=== PATIENT | male | born 1950 | race American Indian/Alaskan Native ===

== ENCOUNTER 2017-06-11 09:50 | Inpatient (IN) | payer BC, MEDICARE ==
[2017-06-11 09:50] VITALS: BMI 39.2
[2017-06-11] MEDS ORDERED: Sodium Chloride 0.9% 1,000 ML IV ONE (10:19)
[2017-06-11] MEDS ORDERED: cefTRIAXone IV 1 gm in Dextros 50 ML IV STA (10:32)
--- NOTE | 2017-06-11 10:32 | C.PDOC ---
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 Pt also reports pain to right side of chest when coughing. States Tmax of 103 this morning, notes taking Tylenol [facility]ENTER CONSULTANT. Otherwise, denies any shortness of breath, palpitations, lightheadedness, sore throat, or any other associated symptoms at this time. Time Seen by Provider: 06/11/17 10:03 Chief Complaint (Nursing): Fever History Per: Patient History/Exam Limitations: no limitations Onset/Duration Of Symptoms: Days (3) Current Symptoms Are (Timing): Still Present Location Of Pain: None Sick Contacts (Context): None Associated Symptoms: Fever, Cough, Sputum, Nasal Congestion. denies: Sore Throat, Neck Pain, Sinus Drainage, Nausea, Vomiting, Diarrhea Ear Symptoms: Bilateral: None Recent travel outside of the [place]: No Additional History Per: Patient Past Medical History Reviewed: Historical Data, Nursing Documentation, Vital Signs Vital Signs: Last Vital Signs Temp 100.3 F H 06/11/17 16:12 Pulse 100 H 06/11/17 16:04 Resp 20 06/11/17 16:04 BP 135/82 06/11/17 16:04 Pulse Ox 97 06/11/17 16:04 - Medical History PMH: Diabetes, Deep Vein Thrombosis - [facility] Procedures CONTRAST ARTERIOGRAM-LEG (12/24/13) PHYSICAL THERAPY NEC (01/06/14) VASC SHUNT & BYPASS NEC (12/24/13) Family History: States: Other Other Family History: brother colon cancer - Social History Hx Tobacco Use: No (quit 1995) Hx Alcohol Use: Yes Hx Substance Use: No - Immunization History Hx Tetanus Toxoid Vaccination: No Hx Influenza Vaccination: No Hx Pneumococcal Vaccination: No Review Of Systems Except As Marked, All Systems Reviewed And Found Negative. Constitutional: Positive for: Fever ENT: Positive for: Nose Congestion. Negative for: Ear Pain, Nose Discharge, Throat Pain, Throat Swelling Cardiovascular: Negative for: Palpitations, Light Headedness Respiratory: Positive for: Cough, Sputum. Negative for: Shortness of Breath, Wheezing Gastrointestinal: Negative for: Nausea, Vomiting, Abdominal Pain Musculoskeletal: Negative for: Leg Pain Skin: Negative for: Rash Neurological: Negative for: Headache, Dizziness Physical Exam - Physical Exam Appears: Non-toxic, No Acute Distress Skin: Normal Color, Warm, Dry Head: Atraumatic, Normacephalic Eye(s): bilateral: Normal Inspection, EOMI Ear(s): Bilateral: Normal Nose: Normal, No Discharge Oral Mucosa: Moist Tongue: Normal Appearing Lips: Normal Appearing Throat: Normal, No Erythema, No Exudate Neck: Normal ROM, Supple Chest: Symmetrical Cardiovascular: Rhythm Regular, No Murmur Respiratory: Normal Breath Sounds, No Accessory Muscle Use, No Rales, No Rhonchi , No Wheezing Gastrointestinal/Abdominal: Soft, No Tenderness Back: No CVA Tenderness Extremity: Normal ROM Neurological/Psych: Oriented x3, Normal Speech ED Course And Treatment - Laboratory Results Result Diagrams: 06/11/17 11:10 06/11/17 11:10 ECG: Interpreted By Me, Viewed By Me ECG Rhythm: Sinus Tachycardia Rate From EC (BPM) O2 Sat by Pulse Oximetry: 98 (on RA) Pulse Ox Interpretation: Normal Progress Note: Blood work, EKG, CXR ordered and reviewed. Patient was given IV fluids, Aspirin, Azithromycin, and Rocephin. On reassessment, patient is resting comfortably, no acute distress. Case discussed with Dr Stephens who requests admission under hospitalist. Case discussed with Dr Fields, agreed upon admission. Disposition - Disposition Disposition: HOSPITALIZED Disposition Time: 13:00 Condition: STABLE - Clinical Impression Clinical Impression: Pneumonia - PA / AUDIO VISUAL AIDS DIRECTOR / Resident Statement MD/DO has reviewed & agrees with the documentation as recorded. - Scribe Statement The provider has reviewed the documentation as recorded by the Scriborquidea Stephens All medical record entries made by the Scriborquidea were at my direction and personally dictated by me. I have reviewed the chart and agree that the record accurately reflects my personal performance of the history, physical exam, medical decision making, and the department course for this patient. I have also personally directed, reviewed, and agree with the discharge instructions and disposition.
[2017-06-11] MEDS ORDERED: Azithromycin 500 MG in Sodium Chloride 0.9% 250 ML IVPB ONE (11:00)
[2017-06-11 11:26] LABS: BASO % 0.3 % (0.0-2.0); HEMOGLOBIN 13.9 g/dL (12.0-18.0); LYMPH # 0.8 K/uL (1.0-4.3); LYMPH % 5.3 % (20.0-40.0); MEAN CELL VOLUME 87.6 fL (80.0-94.0); MEAN CORPUSCULAR HGB CONC 33.1 g/dL (33.0-37.0); MEAN PLATELET VOLUME 9.7 fL (7.2-11.7); MONO % 6.8 % (0.0-10.0); NEUT # 12.9 K/uL (1.8-7.0); NEUT % 87.6 % (50.0-75.0); PLATELET COUNT 158 K/uL (130-400); RBC 4.79 Mil/uL (4.40-5.90); RED CELL DISTRIBUTION WIDTH 14.4 % (11.5-14.5); WHITE BLOOD COUNT 14.7 K/uL (4.8-10.8)
[2017-06-11] MEDS ORDERED: cefTRIAXone IV 1 gm in Dextros 50 ML IVPB ONE (11:27)
[2017-06-11] MEDS ORDERED: Sodium Chloride 0.9% 1,000 ML ONE (11:27)
--- NOTE | 2017-06-11 11:27 | RAD ---
HISTORY: Pneumonia COMPARISON: Chest x-ray performed 01/02/14 TECHNIQUE: Chest PA and lateral FINDINGS: LUNGS: Patchy right upper lobe consolidation suspicious for pneumonia. Right hilar prominence. Please note that chest x-ray has limited sensitivity for the detection of pulmonary masses. PLEURA: No significant pleural effusion identified. No definite pneumothorax . CARDIOVASCULAR: The cardiomediastinal silhouette appears within normal limits of size. OSSEOUS STRUCTURES: No acute osseous abnormality identified. VISUALIZED UPPER ABDOMEN: Unremarkable. OTHER FINDINGS: None. IMPRESSION: Patchy right upper lobe consolidation suspicious for pneumonia. Recommend follow-up to document complete resolution. Right hilar prominence.
[2017-06-11 11:31] LABS: INR 3.6
[2017-06-11 11:40] LABS: ALBUMIN 4.1 g/dL (3.5-5.0)
[2017-06-11 11:43] LABS: ALT/SGPT 41 U/L (21-72); AST/SGOT 45 U/L (17-59); BLOOD UREA NITROGEN 13 mg/dL (9-20); GFR AFRICAN-AMERICAN > 60; GFR NON-AFRICAN AMERICAN > 60
[2017-06-11 11:44] LABS: CALCIUM 9.1 mg/dl (8.6-10.4)
[2017-06-11 11:48] LABS: CK-MB 2.11 ng/mL (0.0-3.38); PROTHROMBIN TIME 43.2 SECONDS (9.7-12.2)
[2017-06-11 12:06] LABS: BANDS 9 % (0-2); LYMPHOCYTE 5 % (20-40); MONOCYTE 6 % (0-10); NEUTROPHIL 80 % (50-75); TOTAL CELLS COUNTED 100
[2017-06-11 12:07] LABS: LARGE PLATELETS PRESENT; PLATELET ESTIMATE NORMAL (NORMAL)
[2017-06-11] MEDS ORDERED: Azithromycin 500mg/250ML NS 500 MG/250 ML BAG IVPB ONE (12:19)
[2017-06-11 14:38] VITALS: RESP 20
--- NOTE | 2017-06-11 14:53 | CP.PCM.HP ---
Addendum entered and electronically signed by Brent Zendejas DO 06/11/17 20:54: Update to allergy listed in H&P: Pt states he "breaks out in a rash when he takes generic warfarin," he denies such response when taking coumadin. Coumadin being held this evening (06/11) due to elevated INR on admission. 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 Patients reports that symptoms began Sunday night while at home. Patient reports a cough that is productive with mucus and blood tinged. Patient reports he took his own temperature at home and had a maximum temperature of 103F fever. Patient reports taking Tylenol for fever control which worked but the fevers have persisted since. Patient denies any SOB at rest or exertion. Patient admits to fevers, sweating, weakness, dizziness, cough, frequency with urination, and a decrease appetite. He denies chest pain, palpitations, abdominal pain, nausea, vomiting, or diarrhea. Patient denies recent admission to healthcare facility. He denies recent travel or sick contacts. 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 Allergies: Warfarin (pt states he cannot take generics because...) Social Hx: 30 year pack tobacco history quit in 1995, denies alcohol use, smokes marijuana occasionally. 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 Lives at home with . Family Hx: mother had colon cancer and thyroid issues, . Father: unknown. Brother: possible ALS. Present on Admission - Present on Admission Any Indicators Present on Admission: Yes History of DVT/PE: Yes History of Uncontrolled Diabetes: No Review of Systems - Constitutional Constitutional: Fever, Lethargy, Malaise, Weakness. absent: Chills, Headache, Weight Loss - EENT Eyes: absent: Change in Vision Ears: absent: Decreased Hearing Nose/Mouth/Throat: absent: Nasal Congestion, Sore Throat - Cardiovascular Cardiovascular: Diaphoresis. absent: Chest Pain, Chest Pain at Rest, Dyspnea, Dyspnea on Exertion, Leg Edema, Palpitations - Respiratory Respiratory: Cough, Chest Congestion. absent: Dyspnea, Hemoptysis, Wheezing - Gastrointestinal Gastrointestinal: absent: Abdominal Pain, Diarrhea, Nausea, Vomiting - Genitourinary Genitourinary: Urinary Frequency. absent: Difficulty Urinating, Dysuria - Musculoskeletal Musculoskeletal: absent: Arthralgias, Back Pain, Numbness, Tingling - Integumentary Additional comments: chronic leg rashes - Neurological Neurological: absent: Numbness, Tingling, Weakness - Psychiatric Psychiatric: absent: Anxiety, Depression - Endocrine Endocrine: Polyuria. absent: Palpitations Past Patient History - Infectious Disease Hx of Infectious Diseases: None - Past Social History Smoking Status: Former Smoker - CARDIAC Hx Cardiac Disorders: Yes Other/Comment: IVC filter - ENDOCRINE/METABOLIC Hx Endocrine Disorders: Yes Hx Diabetes Mellitus Type 2: Yes - PSYCHIATRIC Hx Substance Use: No - SURGICAL HISTORY Hx Surgeries: Yes Hx Vascular Surgery: Yes (bilateral lower extremity bypass) Meds Allergies/Adverse Reactions: Allergies Allergy/AdvReac Type Severity Reaction Status Date / Time warfarin Allergy Verified 06/11/17 10:00 Physical Exam - Constitutional Appears: Non-toxic, No Acute Distress - Head Exam Head Exam: ATRAUMATIC, NORMOCEPHALIC - Eye Exam Eye Exam: EOMI, Normal appearance. absent: Scleral icterus Pupil Exam: PERRL - ENT Exam ENT Exam: Mucous Membranes Moist - Neck Exam Neck exam: Positive for: Normal Inspection. Negative for: Lymphadenopathy Additional comments: No JVD - Respiratory Exam Respiratory Exam: Decreased Breath Sounds (right), NORMAL BREATHING PATTERN. absent: Accessory Muscle Use, Clear to Auscultation Bilateral, Rales, Rhonchi, Wheezes, Respiratory Distress, Stridor - Cardiovascular Exam Cardiovascular Exam: Tachycardia, +S1, +S2 - GI/Abdominal Exam GI & Abdominal Exam: Normal Bowel Sounds, Soft. absent: Firm, Guarding, Tenderness - Extremities Exam Additional comments: Chronic venous stasis changes On RLE, bandage over bypass scarring - Back Exam Back exam: absent: CVA tenderness (L), CVA tenderness (R), rash noted, tenderness - Neurological Exam Neurological exam: Alert, Oriented x3 - Psychiatric Exam Psychiatric exam: Normal Affect, Normal Mood - Skin Skin Exam: Normal Color, Warm Results - Vital Signs Recent Vital Signs: Last Vital Signs Temp 99.9 F H 06/11/17 13:50 Pulse 100 H 06/11/17 13:50 Resp 20 06/11/17 13:50 BP 145/76 06/11/17 13:50 Pulse Ox 95 06/11/17 13:50 - Labs Result Diagrams: 06/11/17 11:10 06/11/17 11:10 Assessment & Plan - Assessment and Plan (Free Text) Plan: Community Acquired Pneumonia Admit to Telemetry, in respiratory isolation due to hemoptysis O2 desaturated to 90% on admission CXR (06/11/2017): RUL consolidation suggestive of pneumonia. Right hilar prominence (see full report) Start Azithromycin 500mg IV Daily Start Rochephin 1 gm IV Daily Florastor 250mg PO BID Tylenol 650mg PO Q6h PRN O2 2L PRN via NC f/u Strep, Legionella, Mycoplasma f/u AM Labs, TSH/Free T4, Lipid panel f/u blood and sputum culture CURB65 score: 1 pt (2.7% 30-day mortality) Sepsis Criteria: WBC >12k, HR >90 Source: Pneumonia Lactate 1.4 on admission ABG, no code sepsis called Hemoptysis Place on respiratory isolation f/u AFB sputum x 3 f/u Quantiferon gold Elevated troponin Pt denies chest pain, but has risk factors of Hyperlipidemia and T2DM, also long -term smoker EKG: No acute St changes, Rate @ 98 bpm; f/u 2 additional Q6H Olive panel equivocal x 1 (0.1210), f/u 2 additional Q6H ASA 81mg PO Daily Crestor 10mg PO HS - hold BB/KERVIN at this time due equivocal positive troponin, will start if uptrending Cardio consult: Dr. Shetty - f/u recommendations Type 2 diabetes mellitus Diagnosed 10 years ago Hold home meds glipizide, onglyza, pioglitazone, and Medium insulin sliding scale Lantus 10 units HS f/u A1C, lipid panel Electrolyte abnormality Hypokalemia 3.4 on admission - Kdur 40mg PO x 2 doses f/u AM K and magnesium Hx of Multiple DVTs IVC filter placed per pt in 1996 Home med Coumadin 8mg Daily HELD due to coagulopathy - INR 3.5 on admission labs -f/u INR/PTT in am Prophylaxis Hold SCDs due to PVD Hold chemical anticoagulation due to elevated INR - f/u Pt/INR in AM No GI ppx indicated at this time Discussed with Dr. Donnie Zendejas PGY-1 <Dwaine Fields - Last Filed: 06/12/17 18:15> Results - Vital Signs Recent Vital Signs: Last Vital Signs Temp 99.8 F H 06/12/17 16:00 Pulse 98 H 06/12/17 16:00 Resp 20 06/12/17 16:00 BP 145/89 06/12/17 16:00 Pulse Ox 94 L 06/12/17 16:00 - Labs Result Diagrams: 06/12/17 08:34 06/12/17 08:34 Labs: Laboratory Results - last 24 hr 06/11/17 06/11/17 06/11/17 15:48 19:48 22:17 WBC RBC Hgb Hct MCV MCH MCHC RDW Plt Count MPV Neut % (Auto) Lymph % (Auto) Caldwell % (Auto) Eos % (Auto) Baso % (Auto) Neut # Lymph # Caldwell # Eos # Baso # PT INR APTT Sodium Potassium Chloride Carbon Dioxide Anion Gap BUN Creatinine Est GFR ( Amer) Est GFR (Non-Af Amer) POC Glucose (mg/dL) 129 H Random Glucose Hemoglobin A1c Calcium Phosphorus Magnesium Total Bilirubin AST ALT Alkaline Phosphatase Total Creatine Kinase 907 H CK-MB (Mass) 2.73 Troponin I, Quant 0.1120 Total Protein Albumin Globulin Albumin/Globulin Ratio Triglycerides Cholesterol LDL Cholesterol Direct HDL Cholesterol Free T4 TSH 3rd Generation H.influenzae Type B Ag Not required Ur L.pneumophila Ag Negative N.meningitidis ACY/W135 Not required N.meningi B/E.coli K1 Ag Not required Group B Strep Antigen Not required S. pneumoniae Antigen Negative 06/12/17 06/12/17 06/12/17 06:14 08:34 08:34 WBC 9.9 RBC 4.45 Hgb 12.9 Hct 39.0 MCV 87.7 MCH 29.0 MCHC 33.0 RDW 14.4 Plt Count 155 MPV 9.8 Neut % (Auto) 75.1 H Lymph % (Auto) 11.7 L Caldwell % (Auto) 12.0 H Eos % (Auto) 0.3 Baso % (Auto) 0.9 Neut # 7.4 H Lymph # 1.2 Caldwell # 1.2 H Eos # 0.0 Baso # 0.1 PT INR APTT Sodium 139 Potassium 4.1 Chloride 101 Carbon Dioxide 23 Anion Gap 19 BUN 13 Creatinine 0.7 L Est GFR ( Amer) > 60 Est GFR (Non-Af Amer) > 60 POC Glucose (mg/dL) 119 H Random Glucose 101 Hemoglobin A1c Calcium 8.4 L Phosphorus 2.9 Magnesium 2.2 Total Bilirubin 0.7 AST 59 D ALT 50 Alkaline Phosphatase 68 Total Creatine Kinase CK-MB (Mass) Troponin I, Quant Total Protein 7.5 Albumin 3.6 Globulin 3.9 Albumin/Globulin Ratio 0.9 L Triglycerides 81 Cholesterol 122 LDL Cholesterol Direct 69 HDL Cholesterol 33 Free T4 TSH 3rd Generation 1.80 H.influenzae Type B Ag Ur L.pneumophila Ag N.meningitidis ACY/W135 N.meningi B/E.coli K1 Ag Group B Strep Antigen S. pneumoniae Antigen 06/12/17 06/12/17 06/12/17 08:34 08:34 08:34 WBC RBC Hgb Hct MCV MCH MCHC RDW Plt Count MPV Neut % (Auto) Lymph % (Auto) Caldwell % (Auto) Eos % (Auto) Baso % (Auto) Neut # Lymph # Caldwell # Eos # Baso # PT 32.1 H* D INR 2.7 D APTT 44 H Sodium Potassium Chloride Carbon Dioxide Anion Gap BUN Creatinine Est GFR ( Amer) Est GFR (Non-Af Amer) POC Glucose (mg/dL) Random Glucose Hemoglobin A1c 6.5 Calcium Phosphorus Magnesium Total Bilirubin AST ALT Alkaline Phosphatase Total Creatine Kinase CK-MB (Mass) Troponin I, Quant Total Protein Albumin Globulin Albumin/Globulin Ratio Triglycerides Cholesterol LDL Cholesterol Direct HDL Cholesterol Free T4 1.41 TSH 3rd Generation H.influenzae Type B Ag Ur L.pneumophila Ag N.meningitidis ACY/W135 N.meningi B/E.coli K1 Ag Group B Strep Antigen S. pneumoniae Antigen 06/12/17 06/12/17 06/12/17 11:35 14:01 16:29 WBC RBC Hgb Hct MCV MCH MCHC RDW Plt Count MPV Neut % (Auto) Lymph % (Auto) Caldwell % (Auto) Eos % (Auto) Baso % (Auto) Neut # Lymph # Caldwell # Eos # Baso # PT INR APTT Sodium Potassium Chloride Carbon Dioxide Anion Gap BUN Creatinine Est GFR ( Amer) Est GFR (Non-Af Amer) POC Glucose (mg/dL) 183 H 135 H Random Glucose Hemoglobin A1c Calcium Phosphorus Magnesium Total Bilirubin AST ALT Alkaline Phosphatase Total Creatine Kinase 910 H CK-MB (Mass) 2.75 Troponin I, Quant 0.1070 Total Protein Albumin Globulin Albumin/Globulin Ratio Triglycerides Cholesterol LDL Cholesterol Direct HDL Cholesterol Free T4 TSH 3rd Generation H.influenzae Type B Ag Ur L.pneumophila Ag N.meningitidis ACY/W135 N.meningi B/E.coli K1 Ag Group B Strep Antigen S. pneumoniae Antigen Attending/Attestation - Attestation I have personally seen and examined this patient.: Yes I have fully participated in the care of the patient.: Yes I have reviewed all pertinent clinical information: Yes Notes (Text): 06/12/17 18:15 Patient was seen and examined at bedside with the resident the time of admission We will release the patient on respiratory isolation We will obtain AFB smears to rule out tuberculosis We will start treatment for community acquired pneumonia We have also requested per my evaluation for the patient I discussed the plan of care with the resident in detail and agree with the history and physical and assessment /plan documented here
[2017-06-11] MEDS ORDERED: Potassium Chloride 20 mEq ER Tab PO ONE (16:10)
[2017-06-11] MEDS: Potassium Chloride 20 mEq ER Tab PO SCH ×2 (16:12→20:51)
[2017-06-11] MEDS: Saccharomyces Boulardi 250 mg Cap PO SCH (17:43)
[2017-06-11] MEDS: (Novolin R) Insulin Human Regular 100 units/ml vial SC SCH ×2 (17:43→22:28)
[2017-06-11 20:16] LABS: CK-MB 2.73 ng/mL (0.0-3.38)
[2017-06-11] MEDS: (Lantus) Insulin Glargine, Recombinant SC SCH (22:31)
[2017-06-12] MEDS ORDERED: Potassium Chloride 20 mEq ER Tab PO ONE (07:48)
--- NOTE | 2017-06-12 07:52 | CP.PCM.PN ---
<Michael Solano - Last Filed: 06/12/17 14:35> Subjective - Date & Time of Evaluation Date of Evaluation: 06/12/17 Time of Evaluation: 07:00 - Subjective Subjective: Patient was S and E at bedside. Patient stated that he's feeling much better today. He denied fevers, chills, diaphoresis today. He said he slept well and that his appetite is normal. He stated that his cough is still present but less frequent. He is still producing sputum which he had collected at bedside - the sputum was maroon/red/bloody in color. He said he's been producing the same consistency of sputum for the last few days. He denied cp, sob, n/v/d/c. Objective - Vital Signs/Intake and Output Vital Signs (last 24 hours): Temp Pulse Resp BP Pulse Ox 101.0 F H 82 20 148/81 93 L 06/12/17 01:09 06/12/17 04:16 06/11/17 23:35 06/11/17 23:35 06/11/17 23:35 - Medications Medications: Current Medications Acetaminophen (Tylenol 325mg Tab) 650 mg PO Q6 PRN PRN Reason: Fever >100.4 F Last Admin: 06/12/17 01:09 Dose: 650 mg Aspirin (Aspirin Chewable) 81 mg PO DAILY [facility] Azithromycin 500 mg/ Sodium (Chloride) 250 mls @ 166.667 mls/hr IVPB DAILY [facility] Ceftriaxone Sodium 1 gm/ (Sodium Chloride) 100 mls @ 200 mls/hr IVPB Q24H [facility] Insulin Glargine (Lantus) 10 unit SC [facility] Last Admin: 06/11/17 22:31 Dose: 10 units Insulin Human Regular (Novolin R) 0 unit SC ACHS [facility] PRN Reason: Protocol Last Admin: 06/11/17 22:28 Dose: Not Given Pneumococcal Polyvalent Vaccine (Pneumovax 23 Vaccine) 0.5 ml IM .ONCE ONE Stop: 06/14/17 10:01 Potassium Chloride (K-Dur 20 Meq Er Tab) 40 meq PO ONCE ONE Stop: 06/12/17 07:49 Rosuvastatin Calcium (Crestor) 10 mg PO [facility] Last Admin: 06/11/17 22:31 Dose: 10 mg Saccharomyces Boulardii (Florastor) 250 mg PO BID [facility] Last Admin: 06/11/17 17:43 Dose: 250 mg - Labs Labs: PT 43.2 SECONDS (9.7-12.2) H* 06/11/17 11:10 INR 3.6 06/11/17 11:10 APTT 47 SECONDS (21-34) H 06/11/17 11:10 - Constitutional Appears: Well, Non-toxic, No Acute Distress - Head Exam Head Exam: ATRAUMATIC, NORMAL INSPECTION, NORMOCEPHALIC - Eye Exam Eye Exam: EOMI, Normal appearance, PERRL - ENT Exam ENT Exam: Mucous Membranes Moist, Normal Exam - Neck Exam Neck Exam: Full ROM, Normal Inspection - Respiratory Exam Respiratory Exam: Rhonchi, Wheezes Additional comments: + wheezing and + rhonchi in bibasalr lung tavares bilaterally - Cardiovascular Exam Cardiovascular Exam: REGULAR RHYTHM, +S1, +S2. absent: Murmur - GI/Abdominal Exam GI & Abdominal Exam: Soft, Normal Bowel Sounds. absent: Tenderness - Rectal Exam Rectal Exam: Deferred - Extremities Exam Extremities Exam: Full ROM, Normal Capillary Refill, Normal Inspection. absent : Joint Swelling, Pedal Edema Additional comments: right leg of greater circumference than left leg. negative for pitting edema bilaterally. Hx of DVT. - Neurological Exam Neurological Exam: Alert, Awake, Oriented x3 - Psychiatric Exam Psychiatric exam: Normal Affect, Normal Mood - Skin Skin Exam: Dry, Intact, Normal Color, Warm Assessment and Plan - Assessment and Plan (Free Text) Assessment: Community Acquired Pneumonia 06/12: strep, legionella negative. Pulmonary consulted, Dr Pérez. Admit to Telemetry, in respiratory isolation due to hemoptysis O2 desaturated to 90% on admission CXR (06/11/2017): RUL consolidation suggestive of pneumonia. Right hilar prominence (see full report) Start Azithromycin 500mg IV Daily Start Rochephin 1 gm IV Daily Florastor 250mg PO BID Tylenol 650mg PO Q6h PRN O2 2L PRN via NC f/u Strep, Legionella, Mycoplasma f/u AM Labs, TSH/Free T4, Lipid panel f/u blood and sputum culture CURB65 score: 1 pt (2.7% 30-day mortality) Sepsis Criteria: WBC >12k, HR >90 Source: Pneumonia Lactate 1.4 on admission ABG, no code sepsis called Hemoptysis Place on respiratory isolation f/u AFB sputum x 3 f/u Quantiferon gold Elevated troponin 06/11: RAÚL neg x2. HDL 33, rest of lipid panel wnl. TSH and Free T4 wnl. Pt denies chest pain, but has risk factors of Hyperlipidemia and T2DM, also long -term smoker EKG: No acute St changes, Rate @ 98 bpm; f/u 2 additional Q6H Raúl panel equivocal x 1 (0.1210), f/u 2 additional Q6H ASA 81mg PO Daily Crestor 10mg PO HS - hold BB/KERVIN at this time due equivocal positive troponin, will start if uptrending Cardio consult: Dr. Shetty - f/u recommendations Type 2 diabetes mellitus 06/12: wound care consulted for stage 1 ulcer near medial malleolus. Diagnosed 10 years ago Hold home meds glipizide, onglyza, pioglitazone, and Medium insulin sliding scale Lantus 10 units HS f/u A1C, lipid panel Electrolyte abnormality Hypokalemia 3.4 on admission - Kdur 40mg PO x 2 doses f/u AM K and magnesium Hx of Multiple DVTs IVC filter placed per pt in 1996 Home med Coumadin 8mg Daily HELD due to coagulopathy - INR 3.5 on admission labs -f/u INR/PTT in am Prophylaxis Hold SCDs due to PVD Hold chemical anticoagulation due to elevated INR - f/u Pt/INR in AM No GI ppx indicated at this time <Dwaine Fields - Last Filed: 06/13/17 16:18> Objective - Vital Signs/Intake and Output Vital Signs (last 24 hours): Temp Pulse Resp BP Pulse Ox 98.3 F 84 20 135/85 95 06/13/17 16:05 06/13/17 16:05 06/13/17 16:05 06/13/17 16:05 06/13/17 16:05 - Medications Medications: Current Medications Acetaminophen (Tylenol 325mg Tab) 650 mg PO Q6 PRN PRN Reason: Fever >100.4 F Last Admin: 06/12/17 01:09 Dose: 650 mg Aspirin (Aspirin Chewable) 81 mg PO DAILY [facility] Last Admin: 06/13/17 10:50 Dose: 81 mg Azithromycin 500 mg/ Sodium (Chloride) 250 mls @ 166.667 mls/hr IVPB DAILY [facility] Last Admin: 06/13/17 15:37 Dose: 166.667 mls/hr Ceftriaxone Sodium 1 gm/ (Sodium Chloride) 100 mls @ 200 mls/hr IVPB Q24H [facility] Last Admin: 06/13/17 15:37 Dose: 200 mls/hr Insulin Glargine (Lantus) 10 unit SC HS [facility] Last Admin: 06/12/17 21:37 Dose: 10 units Insulin Human Regular (Novolin R) 0 unit SC ACHS [facility] PRN Reason: Protocol Last Admin: 06/13/17 15:37 Dose: 2 unit Pneumococcal Polyvalent Vaccine (Pneumovax 23 Vaccine) 0.5 ml IM .ONCE ONE Stop: 06/14/17 10:01 Rosuvastatin Calcium (Crestor) 10 mg PO HS [facility] Last Admin: 06/12/17 21:37 Dose: 10 mg Saccharomyces Boulardii (Florastor) 250 mg PO BID [facility] Last Admin: 06/13/17 10:50 Dose: 250 mg Warfarin Sodium (Coumadin) 8 mg PO 1800 [facility] Stop: 06/13/17 18:01 - Labs Labs: 06/13/17 07:20 06/13/17 07:20 PT 22.4 SECONDS (9.7-12.2) H D 06/13/17 14:14 INR 1.9 D 06/13/17 14:14 APTT 44 SECONDS (21-34) H 06/12/17 08:34 Attending/Attestation - Attestation I have personally seen and examined this patient.: Yes I have fully participated in the care of the patient.: Yes I have reviewed all pertinent clinical information, including history, physical exam and plan: Yes Notes (Text): 06/13/17 16:17 Patient was seen and examined at bedside with the resident Patient is awake alert and states that he is feeling better Cough and expectoration is present but improving We have requested the pulmonary evaluation for the patient I discussed the plan of care with the resident and agree with this and assessment/plan documented.
[2017-06-12] MEDS: (Novolin R) Insulin Human Regular 100 units/ml vial SC SCH ×4 (08:30→21:37)
[2017-06-12 08:44] LABS: BASO # 0.1 K/uL (0.0-0.2); BASO % 0.9 % (0.0-2.0); EOS % 0.3 % (0.0-4.0); HEMOGLOBIN 12.9 g/dL (12.0-18.0); LYMPH # 1.2 K/uL (1.0-4.3); LYMPH % 11.7 % (20.0-40.0); MEAN CELL VOLUME 87.7 fL (80.0-94.0); MEAN PLATELET VOLUME 9.8 fL (7.2-11.7); MONO # 1.2 K/uL (0.0-0.8); NEUT # 7.4 K/uL (1.8-7.0); NEUT % 75.1 % (50.0-75.0); NRBC % 0.1 % (0.0-2.0); RBC 4.45 Mil/uL (4.40-5.90); RED CELL DISTRIBUTION WIDTH 14.4 % (11.5-14.5); WHITE BLOOD COUNT 9.9 K/uL (4.8-10.8)
[2017-06-12 08:48] LABS: INR 2.7
[2017-06-12 08:52] LABS: PROTHROMBIN TIME 32.1 SECONDS (9.7-12.2)
[2017-06-12 08:59] LABS: ALBUMIN 3.6 g/dL (3.5-5.0)
[2017-06-12 09:02] LABS: ALB/GLOB RATIO 0.9 (1.0-2.1); ALT/SGPT 50 U/L (21-72); AST/SGOT 59 U/L (17-59); BLOOD UREA NITROGEN 13 mg/dL (9-20); GFR AFRICAN-AMERICAN > 60; GFR NON-AFRICAN AMERICAN > 60
[2017-06-12 09:03] LABS: CALCIUM 8.4 mg/dl (8.6-10.4); HDL CHOLESTEROL 33 mg/dL (30-70); MAGNESIUM 2.2 mg/dL (1.6-2.3)
[2017-06-12 09:15] LABS: LDL CHOLESTEROL 69 mg/dL (0-129)
[2017-06-12] MEDS: Saccharomyces Boulardi 250 mg Cap PO SCH ×2 (11:30→17:34)
--- NOTE | 2017-06-12 13:06 | CARD ---
APPROVED REPORT EKG Measurement Heart [id number] <Conclusion> Normal sinus rhythm Possible Left atrial enlargement Incomplete right bundle branch block Septal infarct, age undetermined Abnormal ECG
[2017-06-12 13:08] LABS: LEGIONELLA AG URINE NEGATIVE (NEGATIVE)
[2017-06-12] MEDS: Azithromycin 500 MG in Sodium Chloride 0.9% 250 ML IVPB SCH (14:11)
[2017-06-12 14:15] LABS: N MENINGITIS ACY/W135 NOT REQUIRED (NEGATIVE); STREP PNEUMONIAE NEGATIVE (NEGATIVE); STREPTOCOCCUS B NOT REQUIRED (NEGATIVE)
[2017-06-12 14:16] LABS: N MENINGITIS B/ECOLI K1 NOT REQUIRED (NEGATIVE)
[2017-06-12 14:31] LABS: CK-MB 2.75 ng/mL (0.0-3.38)
--- NOTE | 2017-06-12 16:01 | CP.PCM.CON ---
History of Present Illness - History of Present Illness History of Present Illness: Reason for consultation: Hemoptysis, fever 67-year-old male with history of diabetes, DVT on Coumadin presented to emergency room for cough productive of blood-tinged sputum, fever and shortness of breath that started [place] night. Chest x-ray done in the emergency room consistent with right upper lung infiltrate. Patient denies night sweats, denies weight loss, denies weakness/lethargy. Denies recent travel or contact with anyone with active TB. 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 Allergies: Warfarin (pt states he cannot take generics because...) Social Hx: 30 year pack tobacco history quit in 1995, denies alcohol use, smokes marijuana occasionally. 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 Lives at home with . Family Hx: mother had colon cancer and thyroid issues, . Father: unknown. Brother: possible ALS. Review of Systems - Review of Systems All systems: reviewed and no additional remarkable complaints except (Cough with blood-tinged sputum, fever) Past Patient History - Infectious Disease Hx of Infectious Diseases: None - Past Medical History & Family History Past Medical History?: Yes - Past Social History Smoking Status: Former Smoker - CARDIAC Hx Cardiac Disorders: Yes Other/Comment: IVC filter - PULMONARY Hx Respiratory Disorders: No - NEUROLOGICAL Hx Neurological Disorder: No - HEENT Hx HEENT Problems: No - RENAL Hx Chronic Kidney Disease: No - ENDOCRINE/METABOLIC Hx Endocrine Disorders: Yes Hx Diabetes Mellitus Type 2: Yes - HEMATOLOGICAL/ONCOLOGICAL Hx Blood Disorders: No - INTEGUMENTARY Hx Dermatological Problems: No - MUSCULOSKELETAL/RHEUMATOLOGICAL Hx Musculoskeletal Disorders: No Hx Falls: No - GASTROINTESTINAL Hx Gastrointestinal Disorders: No - GENITOURINARY/GYNECOLOGICAL Hx Genitourinary Disorders: No - PSYCHIATRIC Hx Substance Use: No - SURGICAL HISTORY Hx Surgeries: Yes Hx Vascular Surgery: Yes (bilateral lower extremity bypass) - ANESTHESIA Hx Anesthesia: Yes Hx Anesthesia Reactions: No Hx Malignant Hyperthermia: No Has any member of the family had a problem w/ anesthesia?: No Meds Allergies/Adverse Reactions: Allergies Allergy/AdvReac Type Severity Reaction Status Date / Time warfarin Allergy Verified 06/11/17 10:00 - Medications Medications: Current Medications Acetaminophen (Tylenol 325mg Tab) 650 mg PO Q6 PRN PRN Reason: Fever >100.4 F Last Admin: 06/12/17 01:09 Dose: 650 mg Aspirin (Aspirin Chewable) 81 mg PO DAILY [facility] Last Admin: 06/12/17 10:38 Dose: 81 mg Azithromycin 500 mg/ Sodium (Chloride) 250 mls @ 166.667 mls/hr IVPB DAILY [facility] Last Admin: 06/12/17 14:11 Dose: 166.667 mls/hr Ceftriaxone Sodium 1 gm/ (Sodium Chloride) 100 mls @ 200 mls/hr IVPB Q24H [facility] Last Admin: 06/12/17 10:37 Dose: 200 mls/hr Insulin Glargine (Lantus) 10 unit SC [facility] Last Admin: 06/11/17 22:31 Dose: 10 units Insulin Human Regular (Novolin R) 0 unit SC [facility] PRN Reason: Protocol Last Admin: 06/12/17 08:30 Dose: Not Given Pneumococcal Polyvalent Vaccine (Pneumovax 23 Vaccine) 0.5 ml IM .ONCE ONE Stop: 06/14/17 10:01 Rosuvastatin Calcium (Crestor) 10 mg PO [facility] Last Admin: 06/11/17 22:31 Dose: 10 mg Saccharomyces Boulardii (Florastor) 250 mg PO BID [facility] Last Admin: 06/12/17 11:30 Dose: 250 mg Physical Exam - Head Exam Head Exam: ATRAUMATIC, NORMOCEPHALIC - Eye Exam Eye Exam: Normal appearance - ENT Exam ENT Exam: Mucous Membranes Moist - Neck Exam Neck exam: Positive for: Normal Inspection - Respiratory Exam Respiratory Exam: Clear to Auscultation Bilateral - Cardiovascular Exam Cardiovascular Exam: REGULAR RHYTHM - GI/Abdominal Exam GI & Abdominal Exam: Normal Bowel Sounds, Soft - Extremities Exam Extremities exam: Positive for: normal inspection - Neurological Exam Neurological exam: Alert, Oriented x3 Results - Vital Signs Recent Vital Signs: Last Vital Signs Temp 99.4 F 06/12/17 08:05 Pulse 86 06/12/17 09:30 Resp 20 06/12/17 08:05 BP 131/80 06/12/17 08:05 Pulse Ox 95 06/12/17 08:05 - Labs Result Diagrams: 06/12/17 08:34 06/12/17 08:34 Labs: Laboratory Results - last 24 hr 06/11/17 06/11/17 06/11/17 15:48 16:34 19:48 WBC RBC Hgb Hct MCV MCH MCHC RDW Plt Count MPV Neut % (Auto) Lymph % (Auto) [place] % (Auto) Eos % (Auto) Baso % (Auto) Neut # Lymph # [place] # Eos # Baso # PT INR APTT Sodium Potassium Chloride Carbon Dioxide Anion Gap BUN Creatinine Est GFR ( Amer) Est GFR (Non-Af Amer) POC Glucose (mg/dL) 159 H Random Glucose Hemoglobin A1c Calcium Phosphorus Magnesium Total Bilirubin AST ALT Alkaline Phosphatase Total Creatine Kinase 907 H CK-MB (Mass) 2.73 Troponin I, Quant 0.1120 Total Protein Albumin Globulin Albumin/Globulin Ratio Triglycerides Cholesterol LDL Cholesterol Direct HDL Cholesterol Free T4 TSH 3rd Generation H.influenzae Type B Ag Not required Ur L.pneumophila Ag Negative N.meningitidis ACY/W135 Not required N.meningi B/E.coli K1 Ag Not required Group B Strep Antigen Not required S. pneumoniae Antigen Negative 06/11/17 06/12/17 06/12/17 22:17 06:14 08:34 WBC 9.9 RBC 4.45 Hgb 12.9 Hct 39.0 MCV 87.7 MCH 29.0 MCHC 33.0 RDW 14.4 Plt Count 155 MPV 9.8 Neut % (Auto) 75.1 H Lymph % (Auto) 11.7 L [place] % (Auto) 12.0 H Eos % (Auto) 0.3 Baso % (Auto) 0.9 Neut # 7.4 H Lymph # 1.2 [place] # 1.2 H Eos # 0.0 Baso # 0.1 PT INR APTT Sodium Potassium Chloride Carbon Dioxide Anion Gap BUN Creatinine Est GFR ( Amer) Est GFR (Non-Af Amer) POC Glucose (mg/dL) 129 H 119 H Random Glucose Hemoglobin A1c Calcium Phosphorus Magnesium Total Bilirubin AST ALT Alkaline Phosphatase Total Creatine Kinase CK-MB (Mass) Troponin I, Quant Total Protein Albumin Globulin Albumin/Globulin Ratio Triglycerides Cholesterol LDL Cholesterol Direct HDL Cholesterol Free T4 TSH 3rd Generation H.influenzae Type B Ag Ur L.pneumophila Ag N.meningitidis ACY/W135 N.meningi B/E.coli K1 Ag Group B Strep Antigen S. pneumoniae Antigen 06/12/17 06/12/17 06/12/17 08:34 08:34 08:34 WBC RBC Hgb Hct MCV MCH MCHC RDW Plt Count MPV Neut % (Auto) Lymph % (Auto) [place] % (Auto) Eos % (Auto) Baso % (Auto) Neut # Lymph # [place] # Eos # Baso # PT 32.1 H* D INR 2.7 D APTT 44 H Sodium 139 Potassium 4.1 Chloride 101 Carbon Dioxide 23 Anion Gap 19 BUN 13 Creatinine 0.7 L Est GFR ( Amer) > 60 Est GFR (Non-Af Amer) > 60 POC Glucose (mg/dL) Random Glucose 101 Hemoglobin A1c 6.5 Calcium 8.4 L Phosphorus 2.9 Magnesium 2.2 Total Bilirubin 0.7 AST 59 D ALT 50 Alkaline Phosphatase 68 Total Creatine Kinase CK-MB (Mass) Troponin I, Quant Total Protein 7.5 Albumin 3.6 Globulin 3.9 Albumin/Globulin Ratio 0.9 L Triglycerides 81 Cholesterol 122 LDL Cholesterol Direct 69 HDL Cholesterol 33 Free T4 TSH 3rd Generation 1.80 H.influenzae Type B Ag Ur L.pneumophila Ag N.meningitidis ACY/W135 N.meningi B/E.coli K1 Ag Group B Strep Antigen S. pneumoniae Antigen 06/12/17 06/12/17 06/12/17 08:34 11:35 14:01 WBC RBC Hgb Hct MCV MCH MCHC RDW Plt Count MPV Neut % (Auto) Lymph % (Auto) [place] % (Auto) Eos % (Auto) Baso % (Auto) Neut # Lymph # [place] # Eos # Baso # PT INR APTT Sodium Potassium Chloride Carbon Dioxide Anion Gap BUN Creatinine Est GFR ( Amer) Est GFR (Non-Af Amer) POC Glucose (mg/dL) 183 H Random Glucose Hemoglobin A1c Calcium Phosphorus Magnesium Total Bilirubin AST ALT Alkaline Phosphatase Total Creatine Kinase 910 H CK-MB (Mass) 2.75 Troponin I, Quant 0.1070 Total Protein Albumin Globulin Albumin/Globulin Ratio Triglycerides Cholesterol LDL Cholesterol Direct HDL Cholesterol Free T4 1.41 TSH 3rd Generation H.influenzae Type B Ag Ur L.pneumophila Ag N.meningitidis ACY/W135 N.meningi B/E.coli K1 Ag Group B Strep Antigen S. pneumoniae Antigen Assessment & Plan (1) Pneumonia Status: Acute Comment: Chest x-ray consistent with right upper lung infiltrate. Patient with hemoptysis and history of diabetes with right upper lung infiltrate tuberculosis needs to be ruled out. Continue isolation and follow-up sputum AFB 3. Continue IV antibiotics for now. Fiberoptic bronchoscopy and lavage if no improvement
[2017-06-12] MEDS: (Lantus) Insulin Glargine, Recombinant SC SCH (21:37)
[2017-06-13 07:33] LABS: BASO # 0.1 K/uL (0.0-0.2); BASO % 0.6 % (0.0-2.0); EOS # 0.3 K/uL (0.0-0.7); EOS % 2.9 % (0.0-4.0); HEMOGLOBIN 12.6 g/dL (12.0-18.0); LYMPH # 1.3 K/uL (1.0-4.3); LYMPH % 14.2 % (20.0-40.0); MEAN CELL VOLUME 87.4 fL (80.0-94.0); MEAN CORPUSCULAR HEMOGLOBIN 28.5 pg (27.0-31.0); MEAN CORPUSCULAR HGB CONC 32.6 g/dL (33.0-37.0); MEAN PLATELET VOLUME 9.2 fL (7.2-11.7); MONO # 1.4 K/uL (0.0-0.8); MONO % 15.3 % (0.0-10.0); NEUT # 6.3 K/uL (1.8-7.0); RBC 4.43 Mil/uL (4.40-5.90); RED CELL DISTRIBUTION WIDTH 14.3 % (11.5-14.5); WHITE BLOOD COUNT 9.4 K/uL (4.8-10.8)
[2017-06-13 08:08] LABS: ALBUMIN 3.4 g/dL (3.5-5.0)
[2017-06-13 08:11] LABS: AST/SGOT 56 U/L (17-59); GFR AFRICAN-AMERICAN > 60; GFR NON-AFRICAN AMERICAN > 60
[2017-06-13 08:12] LABS: ALB/GLOB RATIO 0.9 (1.0-2.1); ALT/SGPT 66 U/L (21-72); BLOOD UREA NITROGEN 10 mg/dL (9-20); CALCIUM 8.4 mg/dl (8.6-10.4)
[2017-06-13 08:13] LABS: MAGNESIUM 2.3 mg/dL (1.6-2.3)
[2017-06-13] MEDS: (Novolin R) Insulin Human Regular 100 units/ml vial SC SCH ×4 (08:15→21:39)
[2017-06-13] MEDS: Saccharomyces Boulardi 250 mg Cap PO SCH ×2 (10:50→17:36)
[2017-06-13 14:34] LABS: INR 1.9; PROTHROMBIN TIME 22.4 SECONDS (9.7-12.2)
[2017-06-13] MEDS: Azithromycin 500 MG in Sodium Chloride 0.9% 250 ML IVPB SCH (15:37)
--- NOTE | 2017-06-13 16:01 | CP.PCM.PN ---
<Michael Solano - Last Filed: 06/13/17 15:58> Subjective - Date & Time of Evaluation Date of Evaluation: 06/13/17 Time of Evaluation: 10:15 - Subjective Subjective: Patient S and E at bedside. Patient not clinically symptomatic with exception of mild could and bloody sputum. Patient stated he was able to produce sputum for AFB collections. Denies all other questions on ROS. Denies cp, sob, f/c, n/v /d/c, headache, bleeding. Objective - Vital Signs/Intake and Output Vital Signs (last 24 hours): Temp Pulse Resp BP Pulse Ox 98.4 F 79 20 119/81 93 L 06/13/17 08:00 06/13/17 08:00 06/13/17 08:00 06/13/17 08:00 06/13/17 08:00 - Medications Medications: Current Medications Acetaminophen (Tylenol 325mg Tab) 650 mg PO Q6 PRN PRN Reason: Fever >100.4 F Last Admin: 06/12/17 01:09 Dose: 650 mg Aspirin (Aspirin Chewable) 81 mg PO DAILY [facility] Last Admin: 06/13/17 10:50 Dose: 81 mg Azithromycin 500 mg/ Sodium (Chloride) 250 mls @ 166.667 mls/hr IVPB DAILY [facility] Last Admin: 06/13/17 15:37 Dose: 166.667 mls/hr Ceftriaxone Sodium 1 gm/ (Sodium Chloride) 100 mls @ 200 mls/hr IVPB Q24H [facility] Last Admin: 06/13/17 15:37 Dose: 200 mls/hr Insulin Glargine (Lantus) 10 unit SC [facility] Last Admin: 06/12/17 21:37 Dose: 10 units Insulin Human Regular (Novolin R) 0 unit SC [facility] PRN Reason: Protocol Last Admin: 06/13/17 15:37 Dose: 2 unit Pneumococcal Polyvalent Vaccine (Pneumovax 23 Vaccine) 0.5 ml IM .ONCE ONE Stop: 06/14/17 10:01 Rosuvastatin Calcium (Crestor) 10 mg PO HS [facility] Last Admin: 06/12/17 21:37 Dose: 10 mg Saccharomyces Boulardii (Florastor) 250 mg PO BID [facility] Last Admin: 06/13/17 10:50 Dose: 250 mg Warfarin Sodium (Coumadin) 8 mg PO 1800 [facility] Stop: 06/13/17 18:01 - Labs Labs: 06/13/17 07:20 06/13/17 07:20 PT 22.4 SECONDS (9.7-12.2) H D 06/13/17 14:14 INR 1.9 D 06/13/17 14:14 APTT 44 SECONDS (21-34) H 06/12/17 08:34 - Constitutional Appears: Well, Non-toxic, No Acute Distress - Head Exam Head Exam: NORMAL INSPECTION - Eye Exam Eye Exam: Normal appearance - ENT Exam ENT Exam: Mucous Membranes Moist, Normal Exam - Neck Exam Neck Exam: Normal Inspection - Respiratory Exam Respiratory Exam: Decreased Breath Sounds Additional comments: decreased breath sounds in upper right lobe - Cardiovascular Exam Cardiovascular Exam: REGULAR RHYTHM, RRR, +S1, +S2 - GI/Abdominal Exam GI & Abdominal Exam: Soft, Normal Bowel Sounds. absent: Tenderness - Rectal Exam Rectal Exam: Deferred - Extremities Exam Extremities Exam: Full ROM, Normal Capillary Refill, Normal Inspection Additional comments: stage 1 ulcer in right lower extremity near medial malleolous - Neurological Exam Neurological Exam: Alert, Awake, Oriented x3 - Psychiatric Exam Psychiatric exam: Normal Affect, Normal Mood - Skin Skin Exam: Dry, Intact, Normal Color, Warm Assessment and Plan - Assessment and Plan (Free Text) Assessment: Community Acquired Pneumonia 06/13: Blood cultures no growth after 48 hours. Procalcitonin 59. 7/18: strep, legionella negative. Pulmonary consulted, Dr Pérez. Admit to Telemetry, in respiratory isolation due to hemoptysis O2 desaturated to 90% on admission CXR (06/11/2017): RUL consolidation suggestive of pneumonia. Right hilar prominence (see full report) Start Azithromycin 500mg IV Daily Start Rochephin 1 gm IV Daily Florastor 250mg PO BID Tylenol 650mg PO Q6h PRN O2 2L PRN via NC f/u Strep, Legionella, Mycoplasma f/u AM Labs, TSH/Free T4, Lipid panel f/u blood and sputum culture [id number] score: 1 pt (2.7% 30-day mortality) Sepsis Criteria: WBC >12k, HR >90 Source: Pneumonia Lactate 1.4 on admission ABG, no code sepsis called Hemoptysis Place on respiratory isolation f/u AFB sputum x 3 f/u Quantiferon gold Elevated troponin 06/11: RAÚL neg x2. HDL 33, rest of lipid panel wnl. TSH and Free T4 wnl. Pt denies chest pain, but has risk factors of Hyperlipidemia and T2DM, also long -term smoker EKG: No acute St changes, Rate @ 98 bpm; f/u 2 additional Q6H Raúl panel equivocal x 1 (0.1210), f/u 2 additional Q6H ASA 81mg PO Daily Crestor 10mg PO HS - hold BB/KERVIN at this time due equivocal positive troponin, will start if uptrending Cardio consult: Dr. Shetty - f/u recommendations Type 2 diabetes mellitus 06/12: wound care consulted for stage 1 ulcer near medial malleolus. Diagnosed 10 years ago Hold home meds glipizide, onglyza, pioglitazone, and Medium insulin sliding scale Lantus 10 units HS f/u A1C, lipid panel Electrolyte abnormality Hypokalemia 3.4 on admission - Kdur 40mg PO x 2 doses f/u AM K and magnesium Hx of Multiple DVTs 06/13: INR 1.9 today. Restarted coumadin 8mg po daily. IVC filter placed per pt in 1996 Home med Coumadin 8mg Daily HELD due to coagulopathy - INR 3.5 on admission labs -f/u INR/PTT in am Prophylaxis Hold SCDs due to PVD Hold chemical anticoagulation due to elevated INR - f/u Pt/INR in AM No GI ppx indicated at this time <Dwaine Fields - Last Filed: 06/15/17 14:11> Objective - Vital Signs/Intake and Output Vital Signs (last 24 hours): Temp Pulse Resp BP Pulse Ox 97.8 F 71 20 132/83 95 06/15/17 08:48 06/15/17 08:48 06/15/17 08:48 06/15/17 08:48 06/15/17 08:48 Intake and Output: 06/15/17 06/15/17 06:59 18:59 Intake Total 240 Balance 240 - Medications Medications: Current Medications Acetaminophen (Tylenol 325mg Tab) 650 mg PO Q6 PRN PRN Reason: Fever >100.4 F Last Admin: 06/12/17 01:09 Dose: 650 mg Aspirin (Aspirin Chewable) 81 mg PO DAILY [facility] Last Admin: 06/15/17 10:03 Dose: 81 mg Azithromycin 500 mg/ Sodium (Chloride) 250 mls @ 166.667 mls/hr IVPB DAILY [facility] Last Admin: 06/15/17 10:03 Dose: 166.667 mls/hr Ceftriaxone Sodium 1 gm/ (Sodium Chloride) 100 mls @ 200 mls/hr IVPB Q24H [facility] Last Admin: 06/15/17 12:26 Dose: 200 mls/hr Insulin Glargine (Lantus) 10 unit SC HS [facility] Last Admin: 06/14/17 22:00 Dose: 10 units Insulin Human Regular (Novolin R) 0 unit SC [facility] PRN Reason: Protocol Last Admin: 06/15/17 12:32 Dose: Not Given Rosuvastatin Calcium (Crestor) 10 mg PO HS [facility] Last Admin: 06/14/17 22:00 Dose: 10 mg Saccharomyces Boulardii (Florastor) 250 mg PO BID [facility] Last Admin: 06/15/17 10:03 Dose: 250 mg - Labs Labs: 06/15/17 07:34 06/15/17 07:34 PT 27.3 SECONDS (9.7-12.2) H 06/15/17 07:34 INR 2.4 06/15/17 07:34 APTT 44 SECONDS (21-34) H 06/12/17 08:34 Attending/Attestation - Attestation I have personally seen and examined this patient.: Yes I have fully participated in the care of the patient.: Yes I have reviewed all pertinent clinical information, including history, physical exam and plan: Yes Notes (Text): 06/15/17 14:08 Patient was seen and examined at bedside with the resident Patient states that cough is improving. Patient still is in respiratory isolation because of for pending AFB smears I discussed the plan of care with the resident and I agree with the history and physical and assessment/plan documented..
--- NOTE | 2017-06-13 16:38 | CP.PCM.PN ---
Subjective - Date & Time of Evaluation Date of Evaluation: 06/13/17 Time of Evaluation: 16:00 - Subjective Subjective: patient seen and examined. Lying comfortably in no acute distress Cough and shortness of breath much improved but still has some blood-tinged sputum Afebrile AFB 1 negative good appetite no chest pain Objective - Vital Signs/Intake and Output Vital Signs (last 24 hours): Temp Pulse Resp BP Pulse Ox 98.3 F 84 20 135/85 95 06/13/17 16:05 06/13/17 16:05 06/13/17 16:05 06/13/17 16:05 06/13/17 16:05 - Medications Medications: Current Medications Acetaminophen (Tylenol 325mg Tab) 650 mg PO Q6 PRN PRN Reason: Fever >100.4 F Last Admin: 06/12/17 01:09 Dose: 650 mg Aspirin (Aspirin Chewable) 81 mg PO DAILY [facility] Last Admin: 06/13/17 10:50 Dose: 81 mg Azithromycin 500 mg/ Sodium (Chloride) 250 mls @ 166.667 mls/hr IVPB DAILY [facility] Last Admin: 06/13/17 15:37 Dose: 166.667 mls/hr Ceftriaxone Sodium 1 gm/ (Sodium Chloride) 100 mls @ 200 mls/hr IVPB Q24H [facility] Last Admin: 06/13/17 15:37 Dose: 200 mls/hr Insulin Glargine (Lantus) 10 unit SC HS [facility] Last Admin: 06/12/17 21:37 Dose: 10 units Insulin Human Regular (Novolin R) 0 unit SC [facility] PRN Reason: Protocol Last Admin: 06/13/17 15:37 Dose: 2 unit Pneumococcal Polyvalent Vaccine (Pneumovax 23 Vaccine) 0.5 ml IM .ONCE ONE Stop: 06/14/17 10:01 Rosuvastatin Calcium (Crestor) 10 mg PO HS [facility] Last Admin: 06/12/17 21:37 Dose: 10 mg Saccharomyces Boulardii (Florastor) 250 mg PO BID [facility] Last Admin: 06/13/17 10:50 Dose: 250 mg Warfarin Sodium (Coumadin) 8 mg PO 1800 [facility] Stop: 06/13/17 18:01 - Labs Labs: 06/13/17 07:20 06/13/17 07:20 PT 22.4 SECONDS (9.7-12.2) H D 06/13/17 14:14 INR 1.9 D 06/13/17 14:14 APTT 44 SECONDS (21-34) H 06/12/17 08:34 - Head Exam Head Exam: ATRAUMATIC, NORMOCEPHALIC - Eye Exam Eye Exam: Normal appearance - ENT Exam ENT Exam: Mucous Membranes Moist - Neck Exam Neck Exam: Normal Inspection - Respiratory Exam Respiratory Exam: Clear to Ausculation Bilateral - Cardiovascular Exam Cardiovascular Exam: REGULAR RHYTHM - GI/Abdominal Exam GI & Abdominal Exam: Soft, Normal Bowel Sounds - Extremities Exam Extremities Exam: Normal Inspection - Neurological Exam Neurological Exam: Alert, Oriented x3 Assessment and Plan (1) Pneumonia Assessment & Plan: clinically improving Continue IV antibiotics Follow-up chest x-ray tomorrow Follow-up AFB and discontinue isolation 3 AFB negative Status: Acute
[2017-06-13] MEDS: (Lantus) Insulin Glargine, Recombinant SC SCH (21:40)
[2017-06-14 00:31] LABS: TB ANTIGEN MINUS NIL 0.18 IU/mL
[2017-06-14 08:08] LABS: BASO % 0.5 % (0.0-2.0); EOS # 0.3 K/uL (0.0-0.7); EOS % 3.6 % (0.0-4.0); HEMOGLOBIN 12.7 g/dL (12.0-18.0); LYMPH # 1.1 K/uL (1.0-4.3); LYMPH % 14.2 % (20.0-40.0); MEAN CELL VOLUME 87.5 fL (80.0-94.0); MEAN CORPUSCULAR HEMOGLOBIN 29.1 pg (27.0-31.0); MEAN CORPUSCULAR HGB CONC 33.3 g/dL (33.0-37.0); MEAN PLATELET VOLUME 9.2 fL (7.2-11.7); MONO # 1.1 K/uL (0.0-0.8); MONO % 14.3 % (0.0-10.0); NEUT # 5.4 K/uL (1.8-7.0); NEUT % 67.4 % (50.0-75.0); RBC 4.36 Mil/uL (4.40-5.90); RED CELL DISTRIBUTION WIDTH 14.6 % (11.5-14.5)
[2017-06-14] MEDS: (Novolin R) Insulin Human Regular 100 units/ml vial SC SCH ×4 (08:10→21:56)
[2017-06-14 08:25] LABS: ALBUMIN 3.2 g/dL (3.5-5.0)
[2017-06-14 08:28] LABS: ALB/GLOB RATIO 0.9 (1.0-2.1); AST/SGOT 55 U/L (17-59); BLOOD UREA NITROGEN 8 mg/dL (9-20); GFR AFRICAN-AMERICAN > 60; GFR NON-AFRICAN AMERICAN > 60
[2017-06-14 08:29] LABS: ALT/SGPT 78 U/L (21-72); CALCIUM 8.2 mg/dl (8.6-10.4)
[2017-06-14] MEDS ORDERED: Pneumococcal 23-Valent Vaccine IM ONE (10:00)
[2017-06-14] MEDS: Azithromycin 500 MG in Sodium Chloride 0.9% 250 ML IVPB SCH (10:17)
[2017-06-14] MEDS: Saccharomyces Boulardi 250 mg Cap PO SCH ×2 (10:18→18:32)
--- NOTE | 2017-06-14 14:37 | RAD ---
PROCEDURE: CHEST RADIOGRAPH, 1 VIEW HISTORY: f/u pneumonia COMPARISON: 06/11/2017 FINDINGS: LUNGS: Modest interval improvement right upper lobe infiltrate. PLEURA: No pneumothorax or pleural fluid seen. CARDIOVASCULAR: No radiographic findings to suggest acute or significant cardiovascular disease. OSSEOUS STRUCTURES: No significant abnormalities. VISUALIZED UPPER ABDOMEN: Normal. OTHER FINDINGS: None. IMPRESSION: Interval improvement right upper lobe infiltrate/pneumonia.
[2017-06-14 14:50] LABS: INR 2.1; PROTHROMBIN TIME 24.5 SECONDS (9.7-12.2)
[2017-06-14 16:16] VITALS: O2SAT 95
--- NOTE | 2017-06-14 17:55 | CP.PCM.PN ---
Subjective - Date & Time of Evaluation Date of Evaluation: 06/14/17 Time of Evaluation: 18:00 - Subjective Subjective: Patient seen and examined. Sitting comfortably in no acute distress with no further hemoptysis Repeat chest x-ray with resolving infiltrate Awaiting for third AFB Continue antibiotics for now Objective - Vital Signs/Intake and Output Vital Signs (last 24 hours): Temp Pulse Resp BP Pulse Ox 98.7 F 85 20 131/77 95 06/14/17 16:12 06/14/17 16:12 06/14/17 16:12 06/14/17 16:12 06/14/17 16:12 - Medications Medications: Current Medications Acetaminophen (Tylenol 325mg Tab) 650 mg PO Q6 PRN PRN Reason: Fever >100.4 F Last Admin: 06/12/17 01:09 Dose: 650 mg Aspirin (Aspirin Chewable) [address] [facility] Last Admin: 06/14/17 10:17 Dose: 81 mg Azithromycin 500 mg/ Sodium (Chloride) 250 mls @ 166.667 mls/hr IVPB DAILY [facility] Last Admin: 06/14/17 10:17 Dose: 166.667 mls/hr Ceftriaxone Sodium 1 gm/ (Sodium Chloride) 100 mls @ 200 mls/hr IVPB Q24H [facility] Last Admin: 06/14/17 12:10 Dose: 200 mls/hr Insulin Glargine (Lantus) [address] [facility] Last Admin: 06/13/17 21:40 Dose: 10 units Insulin Human Regular (Novolin R) 0 unit SC ACHS [facility] PRN Reason: Protocol Last Admin: 06/14/17 16:55 Dose: Not Given Rosuvastatin Calcium (Crestor) [address] [facility] Last Admin: 06/13/17 21:40 Dose: 10 mg Saccharomyces Boulardii (Florastor) [address] [facility] Last Admin: 06/14/17 10:18 Dose: 250 mg Warfarin Sodium (Coumadin) [address] [facility] Stop: 06/14/17 18:01 - Labs Labs: PT 24.5 SECONDS (9.7-12.2) H 06/14/17 14:06 INR 2.1 06/14/17 14:06 APTT 44 SECONDS (21-34) H 06/12/17 08:34 Assessment and Plan (1) Pneumonia Status: Acute
--- NOTE | 2017-06-14 20:11 | CP.PCM.PN ---
<Michael Solano R - Last Filed: 06/14/17 20:08> Subjective - Date & Time of Evaluation Date of Evaluation: 06/14/17 Time of Evaluation: 14:00 - Subjective Subjective: Patient S and E at bedside. Patient stated he was doing well. His cough has improved. He still has blood tinged sputum. His appetite is good and he slept well last night. He denies cp, sob, f/c,n/v/d/c. Objective - Vital Signs/Intake and Output Vital Signs (last 24 hours): Temp Pulse Resp BP Pulse Ox 98.7 F 84 20 131/77 95 06/14/17 16:12 06/14/17 18:00 06/14/17 16:12 06/14/17 16:12 06/14/17 16:12 - Medications Medications: Current Medications Acetaminophen (Tylenol 325mg Tab) 650 mg PO Q6 PRN PRN Reason: Fever >100.4 F Last Admin: 06/12/17 01:09 Dose: 650 mg Aspirin (Aspirin Chewable) 81 mg PO DAILY [facility] Last Admin: 06/14/17 10:17 Dose: 81 mg Azithromycin 500 mg/ Sodium (Chloride) 250 mls @ 166.667 mls/hr IVPB DAILY DRU Last Admin: 06/14/17 10:17 Dose: 166.667 mls/hr Ceftriaxone Sodium 1 gm/ (Sodium Chloride) 100 mls @ 200 mls/hr IVPB Q24H DRU Last Admin: 06/14/17 12:10 Dose: 200 mls/hr Insulin Glargine (Lantus) 10 unit SC HS [facility] Last Admin: 06/13/17 21:40 Dose: 10 units Insulin Human Regular (Novolin R) 0 unit SC ACHS DRU PRN Reason: Protocol Last Admin: 06/14/17 16:55 Dose: Not Given Rosuvastatin Calcium (Crestor) 10 mg PO HS [facility] Last Admin: 06/13/17 21:40 Dose: 10 mg Saccharomyces Boulardii (Florastor) 250 mg PO BID [facility] Last Admin: 06/14/17 18:32 Dose: 250 mg - Labs Labs: PT 24.5 SECONDS (9.7-12.2) H 06/14/17 14:06 INR 2.1 06/14/17 14:06 APTT 44 SECONDS (21-34) H 06/12/17 08:34 - Constitutional Appears: Well, Non-toxic, No Acute Distress - Head Exam Head Exam: NORMAL INSPECTION - Eye Exam Eye Exam: Normal appearance - ENT Exam ENT Exam: Mucous Membranes Moist - Neck Exam Neck Exam: Normal Inspection - Respiratory Exam Respiratory Exam: NORMAL BREATHING PATTERN Additional comments: decreased lung sounds in right upper lobe - Cardiovascular Exam Cardiovascular Exam: REGULAR RHYTHM, +S1, +S2. absent: Murmur - GI/Abdominal Exam GI & Abdominal Exam: Soft, Normal Bowel Sounds. absent: Tenderness - Rectal Exam Rectal Exam: Deferred - Extremities Exam Additional comments: stage 1 ulcer in right lower extremity near medial malleolous - Neurological Exam Neurological Exam: Alert, Awake - Psychiatric Exam Psychiatric exam: Normal Affect, Normal Mood - Skin Skin Exam: Dry, Intact, Normal Color, Warm Assessment and Plan - Assessment and Plan (Free Text) Assessment: Community Acquired Pneumonia 06/14: Blood cultures no growth after 3 days. Mycobacterial culture shows no acid fast bacilli seen 3x. Mycoplasma pneumonia IgG high at 2.65. 06/13: Blood cultures no growth after 48 hours. Procalcitonin 59. 06/12: strep, legionella negative. Pulmonary consulted, Dr Pérez. Admit to Telemetry, in respiratory isolation due to hemoptysis O2 desaturated to 90% on admission CXR (06/11/2017): RUL consolidation suggestive of pneumonia. Right hilar prominence (see full report) Start Azithromycin 500mg IV Daily Start Rochephin 1 gm IV Daily Florastor 250mg PO BID Tylenol 650mg PO Q6h PRN O2 2L PRN via NC f/u Strep, Legionella, Mycoplasma f/u AM Labs, TSH/Free T4, Lipid panel f/u blood and sputum culture CURB65 score: 1 pt (2.7% 30-day mortality) Sepsis Criteria: WBC >12k, HR >90 Source: Pneumonia Lactate 1.4 on admission ABG, no code sepsis called Hemoptysis Place on respiratory isolation f/u AFB sputum x 3 f/u Quantiferon gold Elevated troponin 06/11: RAÚL neg x2. HDL 33, rest of lipid panel wnl. TSH and Free T4 wnl. Pt denies chest pain, but has risk factors of Hyperlipidemia and T2DM, also long -term smoker EKG: No acute St changes, Rate @ 98 bpm; f/u 2 additional Q6H Raúl panel equivocal x 1 (0.1210), f/u 2 additional Q6H ASA 81mg PO Daily Crestor 10mg PO HS - hold BB/KERVIN at this time due equivocal positive troponin, will start if uptrending Cardio consult: Dr. Shetty - f/u recommendations Type 2 diabetes mellitus 06/12: wound care consulted for stage 1 ulcer near medial malleolus. Diagnosed 10 years ago Hold home meds glipizide, onglyza, pioglitazone, and Medium insulin sliding scale Lantus 10 units HS f/u A1C, lipid panel Electrolyte abnormality Hypokalemia 3.4 on admission - Kdur 40mg PO x 2 doses f/u AM K and magnesium Hx of Multiple DVTs 06/13: INR 1.9 today. Restarted coumadin 8mg po daily. IVC filter placed per pt in 1996 Home med Coumadin 8mg Daily HELD due to coagulopathy - INR 3.5 on admission labs -f/u INR/PTT in am Prophylaxis Hold SCDs due to PVD Hold chemical anticoagulation due to elevated INR - f/u Pt/INR in AM No GI ppx indicated at this time Heart healthy diet <Dwaine Fields - Last Filed: 06/15/17 17:56> Objective - Vital Signs/Intake and Output Vital Signs (last 24 hours): Temp Pulse Resp BP Pulse Ox 97.8 F 71 20 132/83 95 06/15/17 08:48 06/15/17 08:48 06/15/17 08:48 06/15/17 08:48 06/15/17 08:48 Intake and Output: 06/15/17 06/15/17 06:59 18:59 Intake Total 240 Balance 240 - Labs Labs: 06/15/17 07:34 06/15/17 07:34 PT 27.3 SECONDS (9.7-12.2) H 06/15/17 07:34 INR 2.4 06/15/17 07:34 APTT 44 SECONDS (21-34) H 06/12/17 08:34 Attending/Attestation - Attestation I have personally seen and examined this patient.: Yes I have fully participated in the care of the patient.: Yes I have reviewed all pertinent clinical information, including history, physical exam and plan: Yes Notes (Text): 06/15/17 17:55 Patient was seen and examined at bedside with the resident Patient states that cough and expectoration is improving He remains in respiratory isolation until we obtain the result of for AFB smears 3 I discussed the plan of care with the resident and agree with the residents clinic assessment/plan by the resident
[2017-06-14] MEDS: (Lantus) Insulin Glargine, Recombinant SC SCH (22:00)
[2017-06-15 07:48] LABS: BASO # 0.1 K/uL (0.0-0.2); BASO % 0.8 % (0.0-2.0); EOS # 0.3 K/uL (0.0-0.7); EOS % 3.9 % (0.0-4.0); HEMOGLOBIN 12.3 g/dL (12.0-18.0); LYMPH # 1.1 K/uL (1.0-4.3); LYMPH % 14.7 % (20.0-40.0); MEAN CELL VOLUME 87.4 fL (80.0-94.0); MEAN CORPUSCULAR HEMOGLOBIN 28.9 pg (27.0-31.0); MEAN CORPUSCULAR HGB CONC 33.1 g/dL (33.0-37.0); MEAN PLATELET VOLUME 9.1 fL (7.2-11.7); MONO # 1.1 K/uL (0.0-0.8); MONO % 14.6 % (0.0-10.0); NEUT # 4.8 K/uL (1.8-7.0); RBC 4.26 Mil/uL (4.40-5.90); RED CELL DISTRIBUTION WIDTH 14.2 % (11.5-14.5); WHITE BLOOD COUNT 7.3 K/uL (4.8-10.8)
[2017-06-15 07:50] LABS: INR 2.4; PROTHROMBIN TIME 27.3 SECONDS (9.7-12.2)
[2017-06-15 08:07] LABS: ALBUMIN 3.2 g/dL (3.5-5.0)
[2017-06-15 08:10] LABS: ALB/GLOB RATIO 0.9 (1.0-2.1); AST/SGOT 53 U/L (17-59); GFR AFRICAN-AMERICAN > 60; GFR NON-AFRICAN AMERICAN > 60
[2017-06-15 08:11] LABS: ALT/SGPT 85 U/L (21-72); BLOOD UREA NITROGEN 8 mg/dL (9-20); CALCIUM 8.3 mg/dl (8.6-10.4); MAGNESIUM 1.9 mg/dL (1.6-2.3)
[2017-06-15 08:49] VITALS: BP 132/83; PULSE 71; TEMP 97.8
[2017-06-15] MEDS: Azithromycin 500 MG in Sodium Chloride 0.9% 250 ML IVPB SCH (10:03)
[2017-06-15] MEDS: (Novolin R) Insulin Human Regular 100 units/ml vial SC SCH ×2 (10:03→12:32)
[2017-06-15] MEDS: Saccharomyces Boulardi 250 mg Cap PO SCH (10:03)
--- NOTE | 2017-06-15 11:43 | CP.PCM.PN ---
Subjective - Date & Time of Evaluation Date of Evaluation: 06/15/17 Time of Evaluation: 09:00 - Subjective Subjective: patient seen and examined. Condition much improved with no further hemoptysis Afebrile 3 AFB negative Discontinue respiratory isolation Okay to discharge home on p.o. antibiotics Follow up in the office after 10 days with repeat chest x-ray Objective - Vital Signs/Intake and Output Vital Signs (last 24 hours): Temp Pulse Resp BP Pulse Ox 97.8 F 71 20 132/83 95 06/15/17 08:48 06/15/17 08:48 06/15/17 08:48 06/15/17 08:48 06/15/17 08:48 Intake and Output: 06/15/17 06/15/17 06:59 18:59 Intake Total 240 Balance 240 - Medications Medications: Current Medications Acetaminophen (Tylenol 325mg Tab) 650 mg PO Q6 PRN PRN Reason: Fever >100.4 F Last Admin: 06/12/17 01:09 Dose: 650 mg Aspirin (Aspirin Chewable) 81 mg PO DAILY [facility] Last Admin: 06/15/17 10:03 Dose: 81 mg Azithromycin 500 mg/ Sodium (Chloride) 250 mls @ 166.667 mls/hr IVPB DAILY [facility] Last Admin: 06/15/17 10:03 Dose: 166.667 mls/hr Ceftriaxone Sodium 1 gm/ (Sodium Chloride) 100 mls @ 200 mls/hr IVPB Q24H DRU Last Admin: 06/14/17 12:10 Dose: 200 mls/hr Insulin Glargine (Lantus) 10 unit SC HS [facility] Last Admin: 06/14/17 22:00 Dose: 10 units Insulin Human Regular (Novolin R) 0 unit SC ACHS DRU PRN Reason: Protocol Last Admin: 06/15/17 10:03 Dose: Not Given Rosuvastatin Calcium (Crestor) 10 mg PO HS [facility] Last Admin: 06/14/17 22:00 Dose: 10 mg Saccharomyces Boulardii (Florastor) 250 mg PO BID [facility] Last Admin: 06/15/17 10:03 Dose: 250 mg - Labs Labs: 06/15/17 07:34 06/15/17 07:34 PT 27.3 SECONDS (9.7-12.2) H 06/15/17 07:34 INR 2.4 06/15/17 07:34 APTT 44 SECONDS (21-34) H 06/12/17 08:34 Assessment and Plan (1) Pneumonia Status: Acute
--- NOTE | 2017-06-15 21:14 | CP.PCM.DIS ---
<Michael Solano - Last Filed: 06/15/17 21:05> Provider - Provider Date of Admission: 06/14/17 13:56 Attending physician: Dwaine Fields MD Primary care physician: PMD: Unknown [employer] [facility]: Dr Mayberry Consults: Cardiology - Dr Shetty Pulmonology - Dr Pérez Time Spent in preparation of Discharge (in minutes): 45 Hospital Course - Lab Results Lab Results: Most Recent Lab Values WBC 7.3 K/uL (4.8-10.8) 06/15/17 07:34 RBC 4.26 Mil/uL (4.40-5.90) L 06/15/17 07:34 Hgb 12.3 g/dL (12.0-18.0) 06/15/17 07:34 Hct 37.2 % (35.0-51.0) 06/15/17 07:34 MCV 87.4 fL (80.0-94.0) 06/15/17 07:34 MCH 28.9 pg (27.0-31.0) 06/15/17 07:34 MCHC 33.1 g/dL (33.0-37.0) 06/15/17 07:34 RDW 14.2 % (11.5-14.5) 06/15/17 07:34 Plt Count 231 K/uL (130-400) 06/15/17 07:34 MPV 9.1 fL (7.2-11.7) 06/15/17 07:34 Neut % (Auto) 66.0 % (50.0-75.0) 06/15/17 07:34 Lymph % (Auto) 14.7 % (20.0-40.0) L 06/15/17 07:34 Mccreary % (Auto) 14.6 % (0.0-10.0) H 06/15/17 07:34 Eos % (Auto) 3.9 % (0.0-4.0) 06/15/17 07:34 Baso % (Auto) 0.8 % (0.0-2.0) 06/15/17 07:34 Neut # 4.8 K/uL (1.8-7.0) 06/15/17 07:34 Lymph # 1.1 K/uL (1.0-4.3) 06/15/17 07:34 Mccreary # 1.1 K/uL (0.0-0.8) H 06/15/17 07:34 Eos # 0.3 K/uL (0.0-0.7) 06/15/17 07:34 Baso # 0.1 K/uL (0.0-0.2) 06/15/17 07:34 Neutrophils % (Manual) 80 % (50-75) H 06/11/17 11:10 Band Neutrophils % 9 % (0-2) H 06/11/17 11:10 Lymphocytes % (Manual) 5 % (20-40) L 06/11/17 11:10 Monocytes % (Manual) 6 % (0-10) 06/11/17 11:10 Platelet Estimate Normal (NORMAL) 06/11/17 11:10 Large Platelets Present 06/11/17 11:10 RBC Morphology Normal 06/11/17 11:10 PT 27.3 SECONDS (9.7-12.2) H 06/15/17 07:34 INR 2.4 06/15/17 07:34 APTT 44 SECONDS (21-34) H 06/12/17 08:34 Sodium 136 mmol/L (132-148) 06/15/17 07:34 Potassium 3.9 mmol/L (3.6-5.2) 06/15/17 07:34 Chloride 100 mmol/L (98-107) 06/15/17 07:34 Carbon Dioxide 28 mmol/L (22-30) 06/15/17 07:34 Anion Gap 12 (10-20) 06/15/17 07:34 BUN 8 mg/dL (9-20) L 06/15/17 07:34 Creatinine 0.7 MG/DL (0.8-1.5) L 06/15/17 07:34 Est GFR ( Amer) > 60 06/15/17 07:34 Est GFR (Non-Af Amer) > 60 06/15/17 07:34 POC Glucose (mg/dL) 117 mg/dL (65-110) H 06/15/17 11:16 Random Glucose 119 mg/dL (75-110) H 06/15/17 07:34 Hemoglobin A1c 6.5 % (4.2-6.5) 06/12/17 08:34 Lactic Acid 1.4 mmol/L (0.7-2.1) 06/11/17 11:06 Calcium 8.3 mg/dl (8.6-10.4) L 06/15/17 07:34 Phosphorus 3.7 mg/dL (2.5-4.5) 06/15/17 07:34 Magnesium 1.9 mg/dL (1.6-2.3) 06/15/17 07:34 Total Bilirubin 0.6 mg/dL (0.2-1.3) 06/15/17 07:34 AST 53 U/L (17-59) 06/15/17 07:34 ALT 85 U/L (21-72) H 06/15/17 07:34 Alkaline Phosphatase 79 U/L (38-126) 06/15/17 07:34 Total Creatine Kinase 910 U/L (55-170) H 06/12/17 14:01 CK-MB (Mass) 2.75 ng/mL (0.0-3.38) 06/12/17 14:01 Troponin I 0.1240 ng/mL (0.00-0.120) H* 06/11/17 11:10 Troponin I, Quant 0.1070 ng/mL (0.00-0.120) 06/12/17 14:01 Total Protein 6.9 g/dL (6.3-8.3) 06/15/17 07:34 Albumin 3.2 g/dL (3.5-5.0) L 06/15/17 07:34 Globulin 3.7 gm/dL (2.2-3.9) 06/15/17 07:34 Albumin/Globulin Ratio 0.9 (1.0-2.1) L 06/15/17 07:34 Triglycerides 81 mg/dL (0-149) 06/12/17 08:34 Cholesterol 122 mg/dL (0-199) 06/12/17 08:34 LDL Cholesterol Direct 69 mg/dL (0-129) 06/12/17 08:34 HDL Cholesterol 33 mg/dL (30-70) 06/12/17 08:34 Procalcitonin 0.59 NG/ML (0.19-0.49) H 06/13/17 07:20 Free T4 1.41 ng/dL (0.78-2.19) 06/12/17 08:34 TSH 3rd Generation 1.80 mIU/L (0.46-4.68) 06/12/17 08:34 H.influenzae Type B Ag Not required (NEGATIVE) 06/11/17 15:48 Ur L.pneumophila Ag Negative (NEGATIVE) 06/11/17 15:48 Mycoplasma pneumon IgG 2.65 (<=0.90) H 06/11/17 19:48 Mycoplasma pneumon IgM 14 U/mL (<770) 06/11/17 19:48 N.meningitidis ACY/W135 Not required (NEGATIVE) 06/11/17 15:48 N.meningi B/E.coli K1 Ag Not required (NEGATIVE) 06/11/17 15:48 Group B Strep Antigen Not required (NEGATIVE) 06/11/17 15:48 S. pneumoniae Antigen Negative (NEGATIVE) 06/11/17 15:48 TB Test (QFT) Nil 0.17 IU/mL 06/12/17 08:34 TB Test Mitogen - Nil 0.51 IU/mL 06/12/17 08:34 TB Test TB - Nil 0.18 IU/mL 06/12/17 08:34 TB Test (QFT) Negative (Negative) 06/12/17 08:34 - Hospital Course Hospital Course: CC: "I think I have pneumonia" HPI: Patient is a 67 year old male with a PMHx of type two diabetes , multiple DVTs - for which he takes lifelong coumadin, and pneumonia who presented to the ED due to worsening fever, and productive cough. Patients reports that symptoms began Wil[place] night while at home. Patient reports a cough that is productive with mucus and blood tinged. Patient reports he took his own temperature at home and had a maximum temperature of 103F fever. Patient reports taking Tylenol for fever control which worked but the fevers have persisted since. Patient denies any SOB at rest or exertion. Patient admits to fevers, sweating, weakness, dizziness, cough, frequency with urination, and a decrease appetite. He denies chest pain, palpitations, abdominal pain, nausea, vomiting, or diarrhea. Patient denies recent admission to healthcare facility. He denies recent travel or sick contacts. 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 Allergies: Warfarin (pt states he cannot take generics because...) Social Hx: 30 year pack tobacco history quit in 1995, denies alcohol use, smokes marijuana occasionally. 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 Lives at home with . Family Hx: mother had colon cancer and thyroid issues, . Father: unknown. Brother: possible ALS. Hospital Course: Patient presented to the ED on 06/11/17 for evaluation of cough with blood- tinged sputum, congestion, 3 days of fever, and right-sided chest pain provoked by coughing. While there, a CXR demonstrated patchy right upper lobe consolidation suspicious for pneumonia as well as right hilar prominence. An ECG was also done which demonstrated no acute ST changes. The first troponins was equivocally elevated, the following two troponins were negative. Patient was admitted to Internal Medicine on 06/11/17 for pneumonia and was placed in respiratory isolation until such time that tuberculosis could be ruled out. Upon admission, patient had O2 desaturated to 90%, and his calculated CURB65 score was 1 point. Patient was started on azithromycin, rocephin, florastor, tylenol and O2 via NC. Patient was also treated for type 2 DM, for which he was prescribed medium ISS and lantus. On 06/12/17, sputum culture results were negative for strep and legionella. Assistant Drafter Dr. Jim Pérez was consulted regarding the patient's hemoptysis and fever. Isolation and IV antibiotics were continued. On 06/14/17 CXR demonstrated interval improvement in the right upper lobe infiltrate/pneumonia. Blood cultures demonstrated no growth after 3 days. Mycobacterial culture showed no AFB x 3. The quantiferon test was negative. Mycoplasma pneumonia IgG was high at 2.65. On 06/15/17 Dr. Pérez, pulmonology, advised discontinuation of respiratory isolation and approved discharging the patient with home p.o. antibiotics ( levaquin 750mg po for 7 days), recommending a followup for an outpatient CXR. Discharge Exam - Head Exam Head Exam: NORMAL INSPECTION - Eye Exam Eye Exam: EOMI, Normal appearance, PERRL - ENT Exam ENT Exam: Mucous Membranes Moist - Neck Exam Neck exam: Full Rom - Respiratory Exam Additional comments: decreased breath sounds on right upper lobe posteriorly, improved from day of admission - Cardiovascular Exam Cardiovascular Exam: REGULAR RHYTHM, RRR, +S1, +S2 - GI/Abdominal Exam GI & Abdominal Exam: Normal Bowel Sounds - Rectal Exam Rectal Exam: Deferred - Extremities Exam Additional comments: stage 1 sacral ulcer on right medial malleolous - Neurological Exam Neurological exam: Alert - Psychiatric Exam Psychiatric exam: Normal Affect, Normal Mood - Skin Skin Exam: Dry, Intact, Normal Color, Warm Discharge Plan - Discharge Medications Prescriptions: levoFLOXacin 750 mg in D5W [Levaquin 750MG] 750 mg PO DAILY #7 bag - Follow Up Plan Condition: STABLE Disposition: HOME/ ROUTINE Instructions: Viral Pneumonia (GEN), Pneumococcal Vaccine for Adults (GEN) Additional Instructions: Patient is medically stable for discharge. Patient is to continue all his normal home medications. Patient is to take the following NEW medication as instructed to continue the resolution of his infection: Levaqin 750mg po 1 tablet once a day for 7 days. Please take a over the counter probiotic 2 hours after taking this new medication. Please follow up with Assistant Drafter Dr Pérez in his office in 10 days so he can monitor the course of this infection. A chest xray will also be need to done at that time. Please make an appointment and follow up with your Primary Medical Doctor. If symptoms return please come back to the ED Take care and be well. Referrals: Jim Pérez MD [Staff Provider] - Aldo Shetty MD [Staff Provider] - <Dwaine Fields - Last Filed: 06/16/17 15:48> Provider - Provider Date of Admission: 06/14/17 13:56 Attending physician: Dwaine Fields MD Hospital Course - Lab Results Lab Results: Most Recent Lab Values WBC 7.3 K/uL (4.8-10.8) 06/15/17 07:34 RBC 4.26 Mil/uL (4.40-5.90) L 06/15/17 07:34 Hgb 12.3 g/dL (12.0-18.0) 06/15/17 07:34 Hct 37.2 % (35.0-51.0) 06/15/17 07:34 MCV 87.4 fL (80.0-94.0) 06/15/17 07:34 MCH 28.9 pg (27.0-31.0) 06/15/17 07:34 MCHC 33.1 g/dL (33.0-37.0) 06/15/17 07:34 RDW 14.2 % (11.5-14.5) 06/15/17 07:34 Plt Count 231 K/uL (130-400) 06/15/17 07:34 MPV 9.1 fL (7.2-11.7) 06/15/17 07:34 Neut % (Auto) 66.0 % (50.0-75.0) 06/15/17 07:34 Lymph % (Auto) 14.7 % (20.0-40.0) L 06/15/17 07:34 Mccreary % (Auto) 14.6 % (0.0-10.0) H 06/15/17 07:34 Eos % (Auto) 3.9 % (0.0-4.0) 06/15/17 07:34 Baso % (Auto) 0.8 % (0.0-2.0) 06/15/17 07:34 Neut # 4.8 K/uL (1.8-7.0) 06/15/17 07:34 Lymph # 1.1 K/uL (1.0-4.3) 06/15/17 07:34 Mccreary # 1.1 K/uL (0.0-0.8) H 06/15/17 07:34 Eos # 0.3 K/uL (0.0-0.7) 06/15/17 07:34 Baso # 0.1 K/uL (0.0-0.2) 06/15/17 07:34 Neutrophils % (Manual) 80 % (50-75) H 06/11/17 11:10 Band Neutrophils % 9 % (0-2) H 06/11/17 11:10 Lymphocytes % (Manual) 5 % (20-40) L 06/11/17 11:10 Monocytes % (Manual) 6 % (0-10) 06/11/17 11:10 Platelet Estimate Normal (NORMAL) 06/11/17 11:10 Large Platelets Present 06/11/17 11:10 RBC Morphology Normal 06/11/17 11:10 PT 27.3 SECONDS (9.7-12.2) H 06/15/17 07:34 INR 2.4 06/15/17 07:34 APTT 44 SECONDS (21-34) H 06/12/17 08:34 Sodium 136 mmol/L (132-148) 06/15/17 07:34 Potassium 3.9 mmol/L (3.6-5.2) 06/15/17 07:34 Chloride 100 mmol/L (98-107) 06/15/17 07:34 Carbon Dioxide 28 mmol/L (22-30) 06/15/17 07:34 Anion Gap 12 (10-20) 06/15/17 07:34 BUN 8 mg/dL (9-20) L 06/15/17 07:34 Creatinine 0.7 MG/DL (0.8-1.5) L 06/15/17 07:34 Est GFR ( Amer) > 60 06/15/17 07:34 Est GFR (Non-Af Amer) > 60 06/15/17 07:34 POC Glucose (mg/dL) 117 mg/dL (65-110) H 06/15/17 11:16 Random Glucose 119 mg/dL (75-110) H 06/15/17 07:34 Hemoglobin A1c 6.5 % (4.2-6.5) 06/12/17 08:34 Lactic Acid 1.4 mmol/L (0.7-2.1) 06/11/17 11:06 Calcium 8.3 mg/dl (8.6-10.4) L 06/15/17 07:34 Phosphorus 3.7 mg/dL (2.5-4.5) 06/15/17 07:34 Magnesium 1.9 mg/dL (1.6-2.3) 06/15/17 07:34 Total Bilirubin 0.6 mg/dL (0.2-1.3) 06/15/17 07:34 AST 53 U/L (17-59) 06/15/17 07:34 ALT 85 U/L (21-72) H 06/15/17 07:34 Alkaline Phosphatase 79 U/L (38-126) 06/15/17 07:34 Total Creatine Kinase 910 U/L (55-170) H 06/12/17 14:01 CK-MB (Mass) 2.75 ng/mL (0.0-3.38) 06/12/17 14:01 Troponin I 0.1240 ng/mL (0.00-0.120) H* 06/11/17 11:10 Troponin I, Quant 0.1070 ng/mL (0.00-0.120) 06/12/17 14:01 Total Protein 6.9 g/dL (6.3-8.3) 06/15/17 07:34 Albumin 3.2 g/dL (3.5-5.0) L 06/15/17 07:34 Globulin 3.7 gm/dL (2.2-3.9) 06/15/17 07:34 Albumin/Globulin Ratio 0.9 (1.0-2.1) L 06/15/17 07:34 Triglycerides 81 mg/dL (0-149) 06/12/17 08:34 Cholesterol 122 mg/dL (0-199) 06/12/17 08:34 LDL Cholesterol Direct 69 mg/dL (0-129) 06/12/17 08:34 HDL Cholesterol 33 mg/dL (30-70) 06/12/17 08:34 Procalcitonin 0.59 NG/ML (0.19-0.49) H 06/13/17 07:20 Free T4 1.41 ng/dL (0.78-2.19) 06/12/17 08:34 TSH 3rd Generation 1.80 mIU/L (0.46-4.68) 06/12/17 08:34 H.influenzae Type B Ag Not required (NEGATIVE) 06/11/17 15:48 Ur L.pneumophila Ag Negative (NEGATIVE) 06/11/17 15:48 Mycoplasma pneumon IgG 2.65 (<=0.90) H 06/11/17 19:48 Mycoplasma pneumon IgM 14 U/mL (<770) 06/11/17 19:48 N.meningitidis ACY/W135 Not required (NEGATIVE) 06/11/17 15:48 N.meningi B/E.coli K1 Ag Not required (NEGATIVE) 06/11/17 15:48 Group B Strep Antigen Not required (NEGATIVE) 06/11/17 15:48 S. pneumoniae Antigen Negative (NEGATIVE) 06/11/17 15:48 TB Test (QFT) Nil 0.17 IU/mL 06/12/17 08:34 TB Test Mitogen - Nil 0.51 IU/mL 06/12/17 08:34 TB Test TB - Nil 0.18 IU/mL 06/12/17 08:34 TB Test (QFT) Negative (Negative) 06/12/17 08:34 Attending/Attestation - Attestation I have personally seen and examined this patient.: Yes I have fully participated in the care of the patient.: Yes I have reviewed all pertinent clinical information, including history, physical exam and plan: Yes Notes (Text): 06/16/17 15:48 Patient was seen and examined at bedside with the resident Patient feels better. Cough and expectoration is improving Tuberculosis is ruled out. AFB 3 are negative Patient clear for discharge to home on oral antibiotics I had discussed the plan of care with the resident and agree with the discharge note but the resident
== END 2017-06-15 15:15 | disposition home or self-care (01) | DRG 194 ==
LOC: C.ER 09:50 → C.9E 12:11 → C.6T 13:51 → C.9E 13:53 → C.5T 15:34 → OBSVTOIN 06-14 13:56
PROVIDERS: ADMIT Internal Medicine; ATTEND Internal Medicine
DX: J18.9 Pneumonia, unspecified organism (principal); D68.9 Coagulation defect, unspecified; E11.621 Type 2 diabetes mellitus with foot ulcer; I82.409 Acute embolism and thrombosis of unspecified deep veins of unspecified lower extremity; L97.519 Non-pressure chronic ulcer of other part of right foot with unspecified severity; Z79.01 Long term (current) use of anticoagulants; Z87.891 Personal history of nicotine dependence; F12.90 Cannabis use, unspecified, uncomplicated; E78.5 Hyperlipidemia, unspecified; Z79.4 Long term (current) use of insulin; E87.6 Hypokalemia; I73.9 Peripheral vascular disease, unspecified